=== PATIENT | female | born 1960 | race Caucasian/White ===

== ENCOUNTER 2017-10-14 10:17 | Emergency (ER) | payer OTHER, BC ==
[2017-10-14 10:28] VITALS: BP 167/85
--- NOTE | 2017-10-14 12:10 | ER Document Report ---
ED Medical Screen (RME) - General Chief Complaint: Back Pain Stated Complaint: BACK PAIN Time Seen by Provider: 10/14/17 11:28 - HPI Onset: Last week - 57-year-old female sent from urgent care to rule out cauda equina syndrome, had a back injury last week while lifting heavy boxes which prompted her to seek care she has been on Flexeril prednisone as well as ibuprofen since that time which is helped with her symptoms but today she began to have what felt like numbness and tingling near her rectum which prompted her to seek care. Patient is ambulatory however without any focal numbness or weakness in the lower extremities. - Related Data Allergies/Adverse Reactions: latex [Latex] Allergy (Unknown, Verified 04/30/12 08:47) rash Past Medical History - Social History Chew tobacco use (# tins/day): No Frequency of alcohol use: daily Drug Abuse: None - Past Medical History Cardiac Medical History: Reports: Hx Hypertension Denies: Hx Coronary Artery Disease, Hx Heart Attack Pulmonary Medical History: Reports: Hx Bronchitis, Hx Pneumonia Denies: Hx Asthma, Hx COPD Neurological Medical History: Denies: Hx Cerebrovascular Accident, Hx Seizures Renal/ Medical History: Denies: Hx Peritoneal Dialysis Musculoskeltal Medical History: Denies Hx Arthritis Past Surgical History: Reports: Hx Section. Denies: Hx Hysterectomy, Hx Pacemaker - Immunizations Hx Diphtheria, Pertussis, Tetanus Vaccination: Yes Physical Exam - Vital signs Vitals: Temp Pulse Resp BP Pulse Ox 98.1 F 53 L 16 167/85 H 98 10/14/17 10:25 10/14/17 10:10/14/17 10:10/14/17 10:10/14/17 10:25 Course - Re-evaluation Re-evalutation: 10/14/17 12:09 57-year-old female sent for evaluation and concern of potential cauda equina syndrome. Given the concern for possible cauda equina syndrome will obtain MRI of the lumbar spine, do not believe that clinically this patient likely has cauda equina syndrome despite having some numbness and tingling near the rectum at this time. - Vital Signs Vital signs: Temp Pulse Resp BP Pulse Ox 98.1 F 53 L 16 167/85 H 98 10/14/17 10:25 10/14/17 10:25 10/14/17 10:25 10/14/17 10:25 10/14/17 10:25 - Laboratory Result Diagrams: 10/14/17 11:50 Doctor's Discharge - Discharge Referrals: CHRIS MOJICA MD [Primary Care Provider] - Follow up as needed
--- NOTE | 2017-10-14 12:11 | ER Document Report ---
ED General - General Chief Complaint: Back Pain Stated Complaint: BACK PAIN Time Seen by Provider: 10/14/17 11:28 - HPI Notes: Patient is a 57-year-old female who presents to the ED complaining of lower back pain with radiculitis into her bilateral lower extremities usually across her thighs times 1 week status post injury. Patient states that she is lifting up a box when she noticed immediate pain to that area. She was seen at urgent care thereafter and was given a steroid taper as well as ibuprofen and Flexeril. Patient states that she has been taking her steroids and intermittently the other medications that she did not want to call them at once. Patient states that pain is primarily with truncal movements. She is eating and drinking without any difficulties. She is urinating normally and having normal bowel movements. She has not had any history of spinal abscess or IV drug use. Denies any surgical history to her back. Denies any headache, fever, URI, sore throat, chest pain, palpitations, syncope, cough, shortness of breath, wheeze, dyspnea, abdominal pain, nausea/vomiting/diarrhea, urinary retention, dysuria, hematuria, loss of control of bowel or bladder, saddle anesthesia, muscle paralysis/weakness, or rash. - Related Data Allergies/Adverse Reactions: latex [Latex] Allergy (Unknown, Verified 04/30/12 08:47) rash Past Medical History - Social History Smoking Status: Former Smoker Chew tobacco use (# tins/day): No Frequency of alcohol use: daily Drug Abuse: None Family History: Reviewed & Not Pertinent Patient has suicidal ideation: No Patient has homicidal ideation: No - Past Medical History Cardiac Medical History: Reports: Hx Hypertension Denies: Hx Coronary Artery Disease, Hx Heart Attack Pulmonary Medical History: Reports: Hx Bronchitis, Hx Pneumonia Denies: Hx Asthma, Hx COPD Neurological Medical History: Denies: Hx Cerebrovascular Accident, Hx Seizures Renal/ Medical History: Denies: Hx Peritoneal Dialysis Musculoskeletal Medical History: Denies Hx Arthritis Past Surgical History: Reports: Hx Section. Denies: Hx Hysterectomy, Hx Pacemaker - Immunizations Hx Diphtheria, Pertussis, Tetanus Vaccination: Yes Hx Pneumococcal Vaccination: 02/19/11 Review of Systems - Review of Systems -: Yes All other systems reviewed and negative Physical Exam - Vital signs Vitals: Temp Pulse Resp BP Pulse Ox 98.1 F 53 L 16 167/85 H 98 10/14/17 10:25 10/14/17 10:25 10/14/17 10:25 10/14/17 10:25 10/14/17 10:25 - Notes Notes: PHYSICAL EXAMINATION: GENERAL: Well-appearing, well-nourished and in no acute distress. LUNGS: Breath sounds clear to auscultation bilaterally and equal. No wheezes rales or rhonchi. HEART: Regular rate and rhythm without murmurs, rubs, gallops. ABDOMEN: Soft, nontender, nondistended abdomen. No guarding, no rebound. No masses appreciated. Normal bowel sounds present. No CVA tenderness bilaterally. No pulsatile mass Musculoskeletal: LE's b/l: FROM to passive/active. Strength 5+/5. No deficits noted. No bony tenderness of extremities. Back: LROM to passive/active to flexion/ext due to pain. Strength 5+/5. No vertebral point tenderness, stepoffs, or deformities. No other bony tenderness , erythema, swelling, or ecchymosis. SLR positive bilaterally. + mild tenderness to the L-paraspinal mm b/l. Mild spasming. No SI jt tenderness. No foot drop Extremities: No cyanosis, clubbing, or edema b/l. Peripheral pulses 2+. Capillary refill less than 2 seconds. NEUROLOGICAL: Normal speech, normal gait. Normal sensory, motor exams. Reflexes 2+ b/l. PSYCH: Normal mood, normal affect. SKIN: Warm, Dry, normal turgor, no rashes or lesions noted. Course - Re-evaluation Re-evalutation: 10/14/17 15:58 Patient is an afebrile, well-hydrated, 57-year-old female who presents to the ED with low back pain with disc bulge noted primarily at L4-5. Vitals are acceptable without any significant tachycardia, tachypnea, or hypoxia. PE is otherwise unremarkable for any focal neurological deficits. See MRI result. Patient was given Toradol and Decadron IM. Patient is nontoxic-appearing. Patient is able to ambulate and weight-bear. There are no other red flag symptoms or signs of infection noted on exam. No other labs or imaging warranted at this time based on H&P. Low suspicion for any meningitis, fracture , expanding/ruptured AAA, cauda equina syndrome, epidural mass lesion/abscess, or other systemic infection at this time. Patient is aware that his condition can change from initial presentation and that she needs monitor symptoms closely for any acute changes. I will send her home with a prescription for baclofen and naproxen. Conservative measures otherwise for symptoms. Recheck with your PCM in 3-5 days. Schedule an appointment with neurosurgery/ orthopedics for further evaluation and management. Return to the ED with any worsening/concerning symptoms otherwise as reviewed discharge. Patient is in agreement. - Vital Signs Vital signs: Temp Pulse Resp BP Pulse Ox 98.1 F 53 L 16 167/85 H 98 10/14/17 10:25 10/14/17 10:25 10/14/17 10:25 10/14/17 10:25 10/14/17 10:25 - Laboratory Result Diagrams: 10/14/17 11:50 Laboratory results interpreted by me: 10/14/17 10/14/17 11:45 11:50 BUN 28 H Calcium 10.3 H Ur Leukocyte Esterase TRACE H Discharge - Discharge Clinical Impression: Low back pain Qualifiers: Chronicity: acute Back pain laterality: bilateral Sciatica presence: with sciatica Sciatica laterality: bilateral sciatica Qualified Code(s): M54.42 - Lumbago with sciatica, left side; M54.41 - Lumbago with sciatica, right side; M54.41 - Lumbago with sciatica, right side Condition: Stable Disposition: HOME, SELF-CARE Instructions: Low Back Pain ([facility]), Herniated Disc ([facility]) Additional Instructions: Rest, Ice, Compression Tylenol/ibuprofen as needed Light stretches daily Strength exercises as able Moist heat and massage may help F/u with your PCP in 3-5 days for a recheck Call orthopedics and or a neurosurgeon for further evaluation and management Return to the ED with any worsening symptoms and/or development of fever, headache, chest pain, palpitations, syncope, shortness of breath, trouble breathing, abdominal pain, n/v/d, blood in stool/urine, loss of control of bowel /bladder, urinary retention, muscle weakness/paralysis, saddle anesthesia, numbness/tingling, or other worsening symptoms that are concerning to you. Prescriptions: Baclofen [Baclofen 10 mg Tablet] 5 - 10 mg PO BID PRN #10 tablet PRN Reason: Naproxen 500 mg PO BID PRN #30 tablet PRN Reason: Forms: Elevated Blood Pressure Referrals: [facility] ([facility] [Provider Group] - Follow up as needed
[2017-10-14 12:24] LABS: APPEARANCE,URINE CLEAR; BILIRUBIN,URINE NEGATIVE (NEGATIVE); COLOR,URINE YELLOW; GLUCOSE, URINE NEGATIVE (NEGATIVE); KETONES,URINE NEGATIVE (NEGATIVE); LEUKOCYTE ESTERASE,URINE TRACE (NEGATIVE); NITRITE,URINE NEGATIVE (NEGATIVE); PROTEIN,URINE NEGATIVE (NEGATIVE); URINE SPECIFIC GRAVITY 1.021; UROBILINOGEN,URINE NEGATIVE mg/dL (<2.0)
[2017-10-14 12:37] LABS: ANION GAP 13 (5-19); BLOOD UREA NITROGEN 28 mg/dL (7-20); CALCIUM 10.3 mg/dL (8.4-10.2); CARBON DIOXIDE 30 mmol/L (22-30); CHLORIDE 99 mmol/L (98-107); GLUCOSE 99 mg/dL (75-110); POTASSIUM 4.5 mmol/L (3.6-5.0)
--- NOTE | 2017-10-14 15:54 | RADIOLOGY REPORT (SQ) ---
EXAM DESCRIPTION: MRI LUMBAR SPINE WITHOUT COMPLETED DATE/TIME: 10/14/2017 3:34 pm REASON FOR STUDY: rule out cauda equina COMPARISON: None. TECHNIQUE: Sagittal and Axial imaging includes T1, T2, STIR and gradient echo sequences. Coronal T2/ HASTE imaging. LIMITATIONS: None. FINDINGS: VISUALIZED UPPER ABDOMEN: Limited evaluation. No acute or suspicious findings suggested. SEGMENTATION: No transitional anatomy. The lowest well-developed disc space is labeled L5-S1. ALIGNMENT: There is minimal anterolisthesis of L3 in relation to L4. VERTEBRAE: Intact. BONE MARROW: Normal. No marrow replacement or reactive changes. DISC SIGNAL: A degree of disc degeneration is identified at the L3-L4 and L4-L5 disc space levels wit h some mild decrease in the disc space heights at these 2 levels POSTERIOR ELEMENTS: Generally intact. No pars defect evident. HARDWARE: None in the spine. CORD AND CONUS: Normal in size and signal intensity. Conus at the appropriate level. SOFT TISSUES: No aortic aneurysm seen. No bulky retroperitoneal adenopathy or mass. No paraspinal mas s or fluid. L1-L2: No significant spinal stenosis or exit foraminal stenosis. L2-L3: No significant spinal stenosis or exit foraminal stenosis. L3-L4: Symmetric disc bulging is identified and in conjunction with posterior ligamentous hypertrophy and facet arthropathy there is severe spinal stenosis without significant exit foraminal stenosis. L4-L5: Disc bulging is identified with an asymmetric convex component centrally and to the left of mi dline which has the appearance or a broad-based disc protrusion there is impingement on the thecal sa c centrally and to the left of midline and impingement on the lateral recess on the left. There is m oderate spinal stenosis without significant exit foraminal stenosis. L5-S1: No significant spinal stenosis or exit foraminal stenosis. LOWER THORACIC: Incompletely imaged. No stenosis seen. SACRUM: Visualized upper sacrum intact. OTHER: No other significant findings. IMPRESSION: Multilevel disc degeneration and disc bulging as noted above there is an asymmetric conv ex component centrally and left of midline on the left at the L4-L5 level consistent with a broad-bas ed disc protrusion. Other findings as noted above. TECHNICAL DOCUMENTATION: JOB ID: [id number] [employer]- All Rights Reserved Reading location - IP/workstation name: [email or web address]
== END 2017-10-14 16:20 | disposition home or self-care (01) ==
LOC: ER 10:17
DX: M51.16 Intervertebral disc disorders with radiculopathy, lumbar region (principal); R25.2 Cramp and spasm; I10 Essential (primary) hypertension; Z91.040 Latex allergy status; Z87.891 Personal history of nicotine dependence
CPT/HCPCS: 36415; 72148; 80048; 81001; 99284

== ENCOUNTER → 2019-03-07 | Outpatient (CLI) | payer OTHER ==
--- NOTE | 2019-03-07 11:00 | RADIOLOGY REPORT (SQ) ---
EXAM DESCRIPTION: MRI LUMBAR SPINE WITHOUT COMPLETED DATE/TIME: 03/07/2019 10:44 am REASON FOR STUDY: M54.5 LOW BACK PAIN M54.5 LOW BACK PAIN COMPARISON: None. TECHNIQUE: Sagittal and Axial imaging includes T1, T2, STIR and gradient echo sequences. Coronal T2/ HASTE imaging. LIMITATIONS: None. FINDINGS: VISUALIZED UPPER ABDOMEN: Limited evaluation. No acute or suspicious findings suggested. SEGMENTATION: No transitional anatomy. The lowest well-developed disc space is labeled L5-S1. ALIGNMENT: Grade 1 anterolisthesis of L3 on L4. VERTEBRAE: Intact. BONE MARROW: Normal. No marrow replacement or reactive changes. DISC SIGNAL: Decreased T2 signal from L2-L5 with narrowing of the disc spaces at L3-4 and L4-5. POSTERIOR ELEMENTS: Generally intact. No pars defect evident. HARDWARE: None in the spine. CORD AND CONUS: Normal in size and signal intensity. Conus at the T12-L1 level. SOFT TISSUES: No aortic aneurysm seen. No bulky retroperitoneal adenopathy or mass. No paraspinal mas s or fluid. L1-L2: No significant spinal stenosis or exit foraminal stenosis. L2-L3: There is lateral bulging of the disc on the left that may contact the exiting nerve root outsi de of the neural foramen. Left foraminal stenosis. There is no central canal stenosis. L3-L4: There is mild unroofing of the disc secondary to the anterolisthesis. Hypertrophic facet and ligament changes are present. There is moderate central canal stenosis and mild foraminal stenoses, right more than left. L4-L5: Mild concentric disc bulging. Facet and ligament hypertrophy results in mild central canal st enosis. No foraminal stenosis. L5-S1: No significant spinal stenosis or exit foraminal stenosis. LOWER THORACIC: Incompletely imaged. No stenosis seen. SACRUM: Visualized upper sacrum intact. OTHER: No other significant findings. IMPRESSION: 1. Left lateral disc bulge at L2-3 there results in left foraminal stenosis. The depth bulging disc may contact the exiting nerve root outside of the neural foramen. 2. Grade 1 anterolisthesis of L3 on L4. This, together with facet and ligament hypertrophy results in moderate central canal stenosis. There are mild foraminal stenoses, right more than left. 3. Mild concentric disc bulging at L4-5. Facet and ligament hypertrophy results in mild central can al stenosis. TECHNICAL DOCUMENTATION: JOB ID: [id number] [facility]- All Rights Reserved Reading location - IP/workstation name: [email or web address]
== END ==
LOC: RAD 10:07
PROVIDERS: ATTEND Internal Medicine
DX: M54.5 Low back pain (principal); R32 Unspecified urinary incontinence; R29.818 Other symptoms and signs involving the nervous system
CPT/HCPCS: 72148